=== PATIENT | female | born 1955 | race Caucasian/White ===

== ENCOUNTER 2025-04-13 05:38 | Emergency (ER) | payer MEDICARE, SELFPAY ==
[2025-04-13 05:44] VITALS: BP 176/96; PULSE 76; TEMP 36.4; O2SAT 96; BMI 24.4
--- NOTE | 2025-04-13 06:13 | ECG_ITS ---
[facility] Test Date: 2025-04-13 Pat Name: SLAVA ESCALERA Department: Room: - Gender: Female Assistant Prosecuting Attorney: : [id number] Requested By: [id number] Order Number: [id number] Reading MD: BRENNON SCHMIDT Measurements Intervals [place] Rate: 62 P: -12 DE: 172 QRS: -10 QRSD: 102 T: 2 QT: 426 QTc: 431 Interpretive Statements 1100 Sinus rhythm 2440 Incomplete right bundle branch block 5233 Voltage criteria for LVH 9150 abnormal ECG Compared to ECG 02/15/2023 05:08:40 Incomplete right bundle-branch block now present Left ventricular hypertrophy now present Electronically Signed On 04-17-2025 16:09:15 EDT by BRENNON SCHMIDT
--- NOTE | 2025-04-13 06:14 | ED.GENADUL1 ---
HPI HPI - General Adult General Chief complaint: Headache Stated complaint: HEADACHE, NUMBNESS IN R FOOT, HIGH BLOOD PRESSURE Time Seen by Provider: 04/13/25 06:08 Source: patient Mode of arrival: Wheelchair Limitations: no limitations History of Present Illness HPI narrative: history of HTN. here visiting her sister. Ate out at restaurant last PM. Headache yesterday from elevated BP. SHEIKH again this AM as BP was 195 systolic. States she took extra catapres before coming. No longer has headache. Denies chest pain but felt like her heart had increased beating . No nausea or vomiting. no extremity weakness. No vision complaint today or dizziness. Plans to drive home from here. [address] Related Data Home Medications ?Medication ?Instructions ?Recorded ?Confirmed clonidine HCl 0.1 mg tablet mg 04/13/25 losartan 50 mg tablet mg 04/13/25 rosuvastatin 10 mg tablet mg 04/13/25 zolpidem 5 mg tablet mg 04/13/25 Allergies Allergy/AdvReac Type Severity Reaction Status Date / Time tramadol Allergy Unknown Unknown Verified 04/13/25 05:55 Penicillins AdvReac Mild Rash Verified 04/13/25 05:55 PFSH PFSH Social History Little interest or pleasure in doing things: not at all Feeling down, depressed, or hopeless: not at all Exam Constitutional Vital Signs, click to edit/add: Last Vital Signs Temp 97.6 F 04/13/25 05:44 Pulse 76 04/13/25 05:44 Resp 16 04/13/25 05:44 BP 176/96 H 04/13/25 05:44 Pulse Ox 96 04/13/25 05:44 O2 Del Method Room Air 04/13/25 05:44 Course Vital Signs Vital signs: Vital Signs Temperature 97.6 F 04/13/25 05:44 Pulse Rate 76 04/13/25 05:44 Respiratory Rate 16 04/13/25 05:44 Blood Pressure 176/96 H 04/13/25 05:44 Pulse Oximetry 96 04/13/25 05:44 Oxygen Delivery Method Room Air 04/13/25 05:44 Temperature 97.6 F 04/13/25 05:44 Pulse Rate 76 04/13/25 05:44 Respiratory Rate 16 04/13/25 05:44 Blood Pressure 176/96 H 04/13/25 05:44 Pulse Oximetry 96 04/13/25 05:44 Oxygen Delivery Method Room Air 04/13/25 05:44 Medical Decision Making MDM Narrative Medical decision making narrative: presents with headache and hypertension. BP at home was 195 systolic. Took extra Catapres before coming in. BP has decreased to 176/96 and she no longer has a headache. Never and chest pain but felt like her heart beat was more forceful. This has also resolved. Labs and hydralazine ordered. care transferred to oncoming physician at change of shift Discharge Plan Discharge Patient Disposition: Still a Patient
--- NOTE | 2025-04-13 06:34 | PC.NURSE ---
Denies any headache at time of ED visit, states she gets severe headaches with hypertension. She states with hypertension, she also gets numbness of her face.
--- NOTE | 2025-04-13 06:38 | PC.NURSE ---
Patient from [place], here visiting family. She was going to be traveling back home this morning, but she has been having hypertension with symptoms including severe headache, numbness of face, and taking extra doses of her medications. She felt unsafe driving home feeling this way.
[2025-04-13 06:56] LABS: Hematocrit 36.5 % (36.0-48.0); Hemoglobin 12.3 g/dL (12.0-16.0); Immature Granulocytes Abs Auto 0.03 10^3/uL (0.00-0.03); Immature Granulocytes Pct Auto 0.8 % (0.0-0.5); Lymphocytes Absolute Auto 1.0 10^3/uL (1.2-3.8); Mean Corpuscular HGB Conc 33.7 g/dL (29.9-35.2); Mean Corpuscular Hemoglobin 29.6 pg (26.7-34.0); Mean Corpuscular Volume 88.0 fL (81.0-99.0); Platelet Count 156 10^3/uL (150-450); Red Blood Count 4.15 10^6/uL (4.20-5.40); White Blood Count 4.0 10^3/uL (4.0-11.0)
[2025-04-13 07:07] LABS: Anion Gap 12.3; Blood Urea Nitrogen 23.0 mg/dL (7.0-18.0); Calcium 10.0 mg/dL (8.5-10.1); Carbon Dioxide 27.4 mmol/L (21.0-32.0); Chloride 107 mmol/L (98-107); Estimated GFR (African America >60 (>=60 mL/min/1.73m^2); Estimated GFR (Non-African Ame >60 (>=60 mL/min/1.73m^2); Glucose 101 mg/dL (74-106); Potassium 3.7 mmol/L (3.5-5.1); Sodium 143 mmol/L (136-145)
[2025-04-13] MEDS: HYDROCHLOROTHIAZIDE 25 MG TABLET 12.5 MG PO (08:16)
--- NOTE | 2025-04-13 09:50 | ED.GENADUL1 ---
HPI HPI - General Adult General Chief complaint: Headache Stated complaint: HEADACHE, NUMBNESS IN R FOOT, HIGH BLOOD PRESSURE Time Seen by Provider: 04/13/25 06:08 Source: patient Mode of arrival: Wheelchair Limitations: no limitations Related Data Home Medications ?Medication ?Instructions ?Recorded ?Confirmed clonidine HCl 0.1 mg tablet 0.1 mg PO Q8H 04/13/25 04/13/25 losartan 50 mg tablet 100 mg PO .QD 04/13/25 04/13/25 rosuvastatin 10 mg tablet 10 mg PO .QHS 04/13/25 04/13/25 zolpidem 5 mg tablet 7.5 mg PO .QHS 04/13/25 04/13/25 Previous Rx's ?Medication ?Instructions ?Recorded hydrochlorothiazide 12.5 mg tablet 12.5 mg PO DAILY #10 tabs 04/13/25 Allergies Allergy/AdvReac Type Severity Reaction Status Date / Time tramadol Allergy Unknown Unknown Verified 04/13/25 05:55 Penicillins AdvReac Mild Rash Verified 04/13/25 05:55 PFSH PFSH Social History Little interest or pleasure in doing things: not at all Feeling down, depressed, or hopeless: not at all Exam Constitutional Vital Signs, click to edit/add: Last Vital Signs Temp 97.6 F 04/13/25 05:44 Pulse 76 04/13/25 05:44 Resp 16 04/13/25 05:44 BP 176/96 H 04/13/25 05:44 Pulse Ox 96 04/13/25 05:44 O2 Del Method Room Air 04/13/25 05:44 Course Vital Signs Vital signs: Vital Signs Temperature 97.6 F 04/13/25 05:44 Pulse Rate 76 04/13/25 05:44 Respiratory Rate 16 04/13/25 05:44 Blood Pressure 176/96 H 04/13/25 05:44 Pulse Oximetry 96 04/13/25 05:44 Oxygen Delivery Method Room Air 04/13/25 05:44 Temperature 97.6 F 04/13/25 05:44 Pulse Rate 76 04/13/25 05:44 Respiratory Rate 16 04/13/25 05:44 Blood Pressure 176/96 H 04/13/25 05:44 Pulse Oximetry 96 04/13/25 05:44 Oxygen Delivery Method Room Air 04/13/25 05:44 Medical Decision Making MDM Narrative Medical decision making narrative: The patient care transferred to pr at 7 AM: The patient blood workup showed no acute pathology upon my arrival the patient had a bedside evaluation of the blood pressure and it was 160 systolic The patient apparently took another dose of clonidine before arrival which made her taking clonidine 3 times a day instead of twice a day and I did explain to her that this is will be harmful for her other like overdosing on clonidine. The patient understands She did not have any headache since she has been here and she mentioned that she is traveling back to [place], I did explain to her that I want her to stay here at least for 24 hours and make sure that she does not have any more complain and also instruct her about not overtaking her medication without going back to her primary care I did start the patient hydrochlorothiazide 12.5 mg daily and instructed her to follow-up with her primary care doctor as outpatient Also measure her blood pressure daily once a day The patient is to follow up with primary care physician in next 2-3 days or to return to the emergency department should any of the signs or symptoms worsen or new symptoms develop. The patient agrees with the following Diagnosis and Treatment plan and the patient will be discharged home. Clinical impression: Uncontrolled hypertension Lab Data Labs: Lab Results 04/13/25 Range/Units 06:30 WBC 4.0 (4.0-11.0) 10^3/uL RBC 4.15 L (4.20-5.40) 10^6/uL Hgb 12.3 (12.0-16.0) g/dL Hct 36.5 (36.0-48.0) % MCV 88.0 (81.0-99.0) fL MCH 29.6 (26.7-34.0) pg MCHC 33.7 (29.9-35.2) g/dL RDW 12.6 (11.0-15.0) % Plt Count 156 (150-450) 10^3/uL MPV 10.6 (9.5-13.5) fL Neut % (Auto) 59.2 (43.0-75.0) % Lymph % (Auto) 25.8 (20.5-60.0) % Ada % (Auto) 10.4 (1.7-12.0) % Eos % (Auto) 2.8 (0.9-7.0) % Baso % (Auto) 1.0 (0.2-2.0) % Neut # (Auto) 2.4 (1.4-6.5) 10^3/uL Lymph # (Auto) 1.0 L (1.2-3.8) 10^3/uL Ada # (Auto) 0.4 (0.3-0.8) 10^3/uL Eos # (Auto) 0.1 (0.0-0.7) 10^3/uL Baso # (Auto) 0.0 (0.0-0.1) 10^3/uL Abs Immat Gran (auto) 0.03 (0.00-0.03) 10^3/uL Imm/Tot Granulo (auto) 0.8 H (0.0-0.5) % Sodium 143 (136-145) mmol/L Potassium 3.7 (3.5-5.1) mmol/L Chloride 107 (98-107) mmol/L Carbon Dioxide 27.4 (21.0-32.0) mmol/L Anion Gap 12.3 BUN 23.0 H (7.0-18.0) mg/dL Creatinine 0.85 (0.55-1.02) mg/dL Est GFR ( Amer) >60 (>=60 mL/min/1.73m^2) Est GFR (Non-Af Amer) >60 (>=60 mL/min/1.73m^2) BUN/Creatinine Ratio 27.1 Glucose 101 (74-106) mg/dL Calcium 10.0 (8.5-10.1) mg/dL Troponin I High Sens 10.2 (4.0-51.3) pg/mL Discharge Plan Discharge Chief Complaint: Headache Clinical Impression: Hypertensive urgency Patient Disposition: Home, Self-Care Time of Disposition Decision: 07:35 Condition: Good Mode of Transportation: Private Vehicle Prescriptions / Home Meds: New hydrochlorothiazide 12.5 mg tablet 12.5 mg PO DAILY Qty: 10 0RF No Action losartan 50 mg tablet 100 mg PO .QD clonidine HCl 0.1 mg tablet 0.1 mg PO Q8H zolpidem 5 mg tablet 7.5 mg PO .QHS rosuvastatin 10 mg tablet 10 mg PO .QHS Print Language: Cymro Instructions: Chronic Hypertension (ED) Referrals: Physician,Non-Staff, MD [Primary Care Provider] - 1 week Discharge Date/Time: 04/13/25 08:42
== END 2025-04-13 08:42 | disposition home or self-care (01) ==
PROVIDERS: Emergency Provider Internal Medicine
DX: I16.0 Hypertensive urgency (principal); R51.9 Headache, unspecified; R20.2 Paresthesia of skin
CPT/HCPCS: 36415; 80048; 84484; 85025; 93005; 99285